=== PATIENT | female | born 1975 | race Two or more races ===

== ENCOUNTER 2021-07-07 06:50 | Day surgery (SDC) | payer OTHER | END 2021-07-07 20:45 | disposition home or self-care (01) | LOC: CIR.AMB 06:50 | PROVIDERS: ATTEND Surgery | DX: C50.911 Malignant neoplasm of unspecified site of right female breast (principal); R59.0 Localized enlarged lymph nodes; Z42.1 Encounter for breast reconstruction following mastectomy; N62 Hypertrophy of breast; N64.81 Ptosis of breast ==